=== PATIENT | female | born 1980 | race African-American/Black ===

== ENCOUNTER 2018-10-05 19:50 | Emergency (ER) | payer OTHER ==
--- NOTE | 2018-10-05 21:07 | RAD ---
XR Chest 1 View Portable HISTORY: Chest pain COMPARISON: None. FINDINGS: Heart size is upper limits of normal. Mediastinal structures appear unremarkable. The lungs are clear of infiltrates. IMPRESSION: No active intrathoracic disease.
[2018-10-05 21:30] LABS: #Basophils 0.1 thou/uL (0.0-0.2); #Eosinphils 0.2 thou/uL (0.0-0.7); #Lymphocytes 2.9 thou/uL (1.20-3.40); #Monocytes 0.5 thou/uL (0.11-0.59); #Neutrophils 4.2 thou/uL (1.40-6.50); %Eosinophils 2.3 % (0.0-10.0); %Lymphocytes 37.2 % (21.0-51.0); %Monocytes 6.5 % (0.0-10.0); Hemoglobin 10.2 g/dL (12.0-16.0); Mean Corpuscular HGB CONC 32.6 g/dL (32.0-36.0); Mean Corpuscular Hemoglobin 26.1 pg (27.0-31.0); Mean Corpuscular Volume 80.1 fL (78.0-98.0); Mean Platelet Volume 9.6 fL (7.4-10.4); Platelet Count 208 thou/uL (130-400); RBC Distribution Width 15.8 % (11.5-14.5); Red Blood Cell (RBC) Count 3.89 mill/uL (4.20-5.40); White Blood Cell (WBC) Count 7.8 thou/uL (4.8-10.8)
[2018-10-05 21:49] LABS: ALT (SGPT) 14 U/L (8-55); AST (SGOT) 15 U/L (5-34); Albumin 3.8 g/dL (3.5-5.0); Alkaline Phosphatase 85 U/L (40-150); Anion Gap 12 mmol/L (10-20); BUN (Urea Nitrogen) 13 mg/dL (7.0-18.7); Bilirubin, Total 0.8 mg/dL (0.2-1.2); Calc. Creatinine Clearance 0 mL/min (70-130); Calcium 9.4 mg/dL (7.8-10.44); Carbon Dioxide 26 mmol/L (22-29); Chloride 101 mmol/L (98-107); Estimated GFR-MDRD Greater than 90; Globulin 3.9 g/dL (2.4-3.5); Glucose 104 mg/dL (70-105); Magnesium 1.8 mg/dL (1.6-2.6); Protein, Total 7.7 g/dL (6.0-8.3); Sodium 136 mmol/L (136-145)
[2018-10-05] MEDS ORDERED: Potassium Chloride 20 MEQ TAB ONE (22:14)
== END 2018-10-05 22:19 | disposition home or self-care (01) ==
LOC: ERS 19:50
DX: R07.89 Other chest pain (principal); E87.6 Hypokalemia; I10 Essential (primary) hypertension; Z79.899 Other long term (current) drug therapy
CPT/HCPCS: 36416; 71045; 83735; 84484; 85025; 93005

== ENCOUNTER 2021-08-13 18:00 | Outpatient (CLI) | payer MEDICAID, OTHER | END 2021-08-13 18:01 | disposition home or self-care (01) | LOC: SLEEPLAB 18:00 | PROVIDERS: ATTEND Family Medicine | DX: G47.10 Hypersomnia, unspecified (principal); R53.83 Other fatigue; R06.83 Snoring; I10 Essential (primary) hypertension; G47.00 Insomnia, unspecified; E66.9 Obesity, unspecified; Z68.45 Body mass index [BMI] 70 or greater, adult | CPT/HCPCS: 95800 ==

== ENCOUNTER 2021-09-05 19:00 | Outpatient (CLI) | payer OTHER | END 2021-09-05 19:01 | disposition home or self-care (01) | LOC: SLEEPLAB 19:00 | PROVIDERS: ATTEND Family Medicine | DX: G47.9 Sleep disorder, unspecified (principal); G47.33 Obstructive sleep apnea (adult) (pediatric); R53.83 Other fatigue; R06.83 Snoring; I10 Essential (primary) hypertension; G47.10 Hypersomnia, unspecified; G47.00 Insomnia, unspecified; F32.9 Major depressive disorder, single episode, unspecified; F41.9 Anxiety disorder, unspecified; E66.9 Obesity, unspecified; Z68.42 Body mass index [BMI] 45.0-49.9, adult | CPT/HCPCS: 95810 ==

== ENCOUNTER 2021-11-06 19:30 | Outpatient (CLI) | payer OTHER | END 2021-11-06 19:31 | disposition home or self-care (01) | LOC: SLEEPLAB 19:30 | PROVIDERS: ATTEND Family Medicine | DX: G47.9 Sleep disorder, unspecified (principal); R53.83 Other fatigue; E66.9 Obesity, unspecified; R06.83 Snoring; I10 Essential (primary) hypertension; G47.10 Hypersomnia, unspecified; I49.1 Atrial premature depolarization; Z68.42 Body mass index [BMI] 45.0-49.9, adult | CPT/HCPCS: 95811 ==